=== PATIENT | female | born 1980 | race Caucasian/White ===

== ENCOUNTER 2020-10-24 15:38 | Emergency (ER) | payer OTHER ==
[~2020-10-24 15:38] MED LIST: AZITHROMYCIN250 MG PO; BACTRIM 400-801 EACH PO; BENTYL 20MG TAB20 MG PO; CYCLOBENZAPRINE10 MG PO; LEVAQUIN750 MG PO; LODINE CAP 300300 MG PO; NEURONTIN 400400 MG PO; NORFLEX 100 MG100 MG PO; PENVEE K 500 M500 MG PO; ZOFRAN ODT 4 MG4 MG PO
[2020-10-25] MEDS ORDERED: PREDNISONE 50 M50 MG PO (11:27)
== END 2020-10-24 17:38 | disposition left against medical advice (07) ==
LOC: ER1 15:38
DX: M54.9 Dorsalgia, unspecified (principal); Z53.21 Procedure and treatment not carried out due to patient leaving prior to being seen by health care provider

== ENCOUNTER 2020-10-25 10:09 | Emergency (ER) | payer OTHER ==
[2020-10-25] MEDS ORDERED: PREDNISONE 50 M50 MG PO (11:27)
== END 2020-10-25 11:45 | disposition home or self-care (01) ==
LOC: ER1 10:09
DX: M54.12 Radiculopathy, cervical region (principal); F17.290 Nicotine dependence, other tobacco product, uncomplicated
CPT/HCPCS: 96372; 99283; J1100; J1885

== ENCOUNTER 2021-01-01 13:35 | Emergency (ER) | payer OTHER ==
[~2021-01-01 13:35] MED LIST changes: +PREDNISONE 50 M50 MG PO
== END 2021-01-01 16:24 | disposition home or self-care (01) ==
LOC: ER1 13:35
DX: M79.602 Pain in left arm (principal); G89.29 Other chronic pain; Z79.899 Other long term (current) drug therapy; F17.290 Nicotine dependence, other tobacco product, uncomplicated
CPT/HCPCS: 99283

== ENCOUNTER → 2021-01-31 | Outpatient (CLI) | payer OTHER | LOC: RAD 14:17 | DX: M25.512 Pain in left shoulder (principal); M25.521 Pain in right elbow; M54.2 Cervicalgia; M54.9 Dorsalgia, unspecified; R05 Cough | CPT/HCPCS: 71046; 72050; 72072; 72110; 73030 ==